=== PATIENT | male | born 1985 | race Two or more races ===

== ENCOUNTER 2019-11-01 16:42 | Outpatient (CLI) | payer OTHER | END 2019-11-01 16:47 | disposition home or self-care (01) | LOC: LAB 16:42 | PROVIDERS: ATTEND Surgery | DX: R97.20 Elevated prostate specific antigen [PSA] (principal) ==

== ENCOUNTER 2019-11-17 07:20 | Outpatient (CLI) | payer OTHER | END 2019-11-17 07:29 | disposition home or self-care (01) | LOC: SONOGRAMA 07:20 | PROVIDERS: ATTEND Surgery | DX: R97.20 Elevated prostate specific antigen [PSA] (principal) ==

== ENCOUNTER 2021-10-18 22:04 | Outpatient (CLI) | payer OTHER | END 2021-10-18 23:00 | disposition home or self-care (01) | LOC: LAB 22:04 | PROVIDERS: ATTEND Obstetrics & Gynecology | DX: Z20.818 Contact with and (suspected) exposure to other bacterial communicable diseases (principal); Z20.828 Contact with and (suspected) exposure to other viral communicable diseases ==